=== PATIENT | female | born 1985 | race Caucasian/White ===

== ENCOUNTER → 2016-08-26 | Outpatient (CLI) | payer OTHER ==
[2016-08-26 12:29] LABS: BASO % 0.8 %; BASO ABS # 0.04 K/uL (0-0.2); COMPLETE YES; EOS % 2.8 %; HEMATOCRIT 39.8 % (37-47); IG% 0.2 %; LYMPH % 43.6 %; MEAN CELL VOLUME 93.4 fL (80-100); MEAN CORPUSCULAR HEMOGLOBIN 32.2 pg (25-34); MEAN CORPUSCULAR HGB CONC 34.4 g/dl (32-36); MEAN PLATELET VOLUME 9.3 fL (7.4-10.4); MONO % 6.8 %; NEUT % 45.8 %; PLATELET COUNT 289 K/uL (130-400); RED BLOOD COUNT 4.26 M/uL (4.2-5.4); WHITE BLOOD COUNT 5.27 K/uL (4.8-10.8)
[2016-08-26 15:01] LABS: LYME DISEASE AB IGG NEG (NEG); LYME DISEASE AB IGM NEG (NEG)
== END | disposition home or self-care (01) ==
LOC: C.LABBFT 09:52
PROVIDERS: ATTEND Internal Medicine
DX: Z00.00 Encounter for general adult medical examination without abnormal findings (principal); F41.9 Anxiety disorder, unspecified; R00.2 Palpitations; T14.8 Other injury of unspecified body region; W57.XXXA Bitten or stung by nonvenomous insect and other nonvenomous arthropods, initial encounter; M25.562 Pain in left knee

== ENCOUNTER → 2016-11-05 | Outpatient (CLI) | payer OTHER | END | disposition home or self-care (01) | LOC: C.PAPS 14:43 | PROVIDERS: ATTEND Obstetrics & Gynecology | DX: Z12.4 Encounter for screening for malignant neoplasm of cervix (principal) ==

== ENCOUNTER → 2017-11-12 | Outpatient (CLI) | payer OTHER ==
[2017-11-12 18:06] LABS: HEP C IGG 13 YRS+OLDER_RFLX NEG (NEG)
== END | disposition home or self-care (01) ==
LOC: C.LAB1850 15:15
PROVIDERS: ATTEND Obstetrics & Gynecology
DX: Z12.4 Encounter for screening for malignant neoplasm of cervix (principal); Z11.3 Encounter for screening for infections with a predominantly sexual mode of transmission

== ENCOUNTER → 2017-11-12 | Outpatient (CLI) | payer OTHER | END | disposition home or self-care (01) | LOC: C.PAPS 17:56 | PROVIDERS: ATTEND Obstetrics & Gynecology | DX: Z12.4 Encounter for screening for malignant neoplasm of cervix (principal); R87.610 Atypical squamous cells of undetermined significance on cytologic smear of cervix (ASC-US) ==

== ENCOUNTER 2025-07-10 01:18 | Observation (INO) ==
[2025-07-10] MEDS: SODIUM CHLORIDE 0.9% 1,000 ML IV STA (01:50)
[2025-07-10] MEDS: MoRPHine SULFATE 4 MG/ML 1 ML CARP\\VIAL IV PRN (01:50)
[2025-07-10] MEDS: ONDANSETRON INJ 2 MG/ML 2 ML VIAL IV STA (01:50)
[2025-07-10 02:08] LABS: Hematocrit (blood only) 35.4 % (37.0-47.0); Hemoglobin 12.6 g/dL (12.0-16.0); Immature Granulocytes # (auto) 0.02 K/uL (0.01-0.20); Immature Granulocytes % (auto) 0.3 %; Mean Corpuscular Hemoglobin 32.4 pg (25.0-34.0); Mean Corpuscular Volume 91.0 fL (80.0-100.0); Platelet Count 278 K/uL (130-400); RDW Standard Deviation 42.5 fL (36.4-46.3); Red Blood Count 3.89 M/uL (4.20-5.40); White Blood Count 7.97 K/ul (4.8-10.8)
[2025-07-10 02:15] LABS: Appearance Urine Clear (Clear); Bacteria Urine Automated None Seen (None Seen); Cast Urine Automated 0-2 /lpf (0-2); Epithelial Cell Urine Auto 0-2 /hpf (0-2); Glucose Urine UA Negative (Negative); WBC Urine Automated 0-5 /hpf (0-5)
[2025-07-10 02:21] LABS: Pregnancy Test, Serum Negative (Negative)
[2025-07-10 02:25] LABS: Alanine Aminotransferase 16.0 U/L (7-52); Albumin Globulin Ratio 1.9 (0.9-2); Albumin Level 4.3 gm/dl (3.4-5.0); Alkaline Phosphatase 35.0 U/L (34-104); Anion Gap 7.0 (3-11); Bilirubin,Total 0.4 mg/dl (0.2-1.0); Blood Urea Nitrogen 17.0 mg/dl (6-23); Calcium 8.8 mg/dl (8.6-10.3); Carbon Dioxide 22.0 mmol/L (21-32); Chloride 106.0 mmol/L (98-107); Creatinine Clr Calc Pharmacy 100.7 ml/min; Globulin 2.3 gm/dl (2.5-4.0); Glucose 103.0 mg/dl (70-99(Fasting)); Lipase 403.0 U/L (11-82); Potassium 3.7 mmol/L (3.5-5.1); Sodium 135.0 mmol/L (136-145); Total Protein 6.6 gm/dl (6.0-8.3)
--- NOTE | 2025-07-10 02:40 | Emergency Department Note ---
History of Present Illness General Chief complaint: Kidney Stone Stated complaint: KIDNEY STONE Time Seen by Provider: 07/10/25 01:24 History of Present Illness Maximum Pain Intensity: 8 This 40-year-old female presents ER complaining of abdominal pain for the past week steadily getting worse. Gallbladder has been surgically removed. Patient denies chest pain, dyspnea, fever, chills, flulike illness. Pain is mid abdomen. Home Medications Medication Instructions Recorded Confirmed Type lidocaine 5 % topical patch 1 patch topical DAILY PRN pain #15 03/08/25 06/01/25 Rx ea cetirizine 10 mg tablet (Zyrtec) 10 mg PO DAILY 05/25/25 07/10/25 History clotrimazole 10 mg sue 10 mg PO 5XD 14 days #70 tabs 05/26/25 06/01/25 Rx prednisone 5 mg tablet See Rx Instructions PO .COMPLEX 05/26/25 06/01/25 Rx #36 tabs fluconazole 150 mg tablet 150 mg PO ONCE 2 doses #2 tabs 06/06/25 Rx lorazepam 0.5 mg tablet 0.5 - 1 mg (1 - 2 x 0.5 mg) PO Q8H 07/09/25 07/10/25 Rx PRN anxiety #30 tabs fluoxetine 20 mg capsule (Prozac) 20 mg PO DAILY 07/10/25 07/10/25 History Allergies Allergy/AdvReac Type Severity Reaction Status Date / Time codeine Allergy Unknown SWELLING Verified 06/01/25 08:31 Past Med/Surg History Problem List (Updated 07/10/25 @ 04:56 by Trenton Gaitan PA-C) Pancreatitis Ovarian cyst (Acute) Abdominal pain, acute (Acute) Pelvic cramping Screening for STD (sexually transmitted disease) Nephrolithiasis (Chronic) Anxiety (Chronic) Right ovarian cyst Medical History ASCUS favor benign Surgical History Hx of lithotripsy Hx of tubal ligation S/P wisdom tooth extraction S/P cholecystectomy Family History Grandfather (Paternal) Dyslipidemia Denies family history of Ovarian cancer Prostate cancer Myocardial infarction Breast cancer Colorectal cancer Social History Smoking Status: Former smoker Tobacco Type: Cigarettes Age Started Using Tobacco: 15; Age Quit Using Tobacco: 35; packs per day: 1; Cigarettes Per Day: 1 pack day; Second Hand Exposure: No; Do You Dip or Chew Tobacco: No; Hx Alcohol Use: Yes Alcohol type: beer, wine and hard liquor Hx Substance Use: Yes Non-Prescribed Medications: Marijuana Non-Prescribed Medications Comment: does not have card Last Used Substance: Days (ago) Preferred Language: Malawian Communication Ability: Effective Visual Impairment: No Limitations Hearing Ability: Normal Pathology Transcriptionist Required: No Beliefs That Will Affect Care: None marital status: Single Current Living Situation: Family current occupational status: employed Feels Safe at Home: Yes Safety Concerns: Feels Safe At This Time Childhood Exposure to Second-Hand Smoke: No Diet: regular caffeine: Yes Dental Care, Regularly: No Physical Activity Frequency: 3-4 Times per Week Assistive Devices: None Review of Systems A total of 10 systems reviewed and were otherwise negative Physical Exam Vital Signs Vital Signs - 24 hr 07/10/25 01:20 07/10/25 01:55 07/10/25 04:03 Temperature 36.7 C Temperature Source Oral Pulse Rate 68 69 Pulse Rate [Apical] 89 Pulse Rhythm [Apical] Regular Pulse Strength [Apical] Normal Respiratory Rate 18 16 Respiratory Effort / Characteristics Non-Labored Spontaneous Non-Labored Spontaneous Respiratory Depth Normal Normal Respiratory Pattern Regular Blood Pressure 132/83 Blood Pressure [Right Arm] 124/74 Blood Pressure Mean 99 Blood Pressure Mean [Right Arm] 90 Blood Pressure Position [Right Arm] Lying Pulse Oximetry 100 97 Oxygen Delivery Method Room Air Room Air Sepsis Recent Fever Within 48 Hours No Sepsis New/Unexplained Change in Mental Status N/A Sepsis Action Taken by Nursing No Action Required VITALS: Vitals are noted on the nurse's note and reviewed by myself. Vital signs stable. GENERAL: Pleasant female, in no acute distress, nondiaphoretic, well-developed well-nourished. SKIN: Capillary reflex less than 2 seconds. HEENT: Normocephalic. PERRLA. EOMI. Nares patent. Mucous membranes moist. Neck is supple without nuchal rigidity. HEART: Regular rate and rhythm LUNGS: Clear to auscultation bilaterally without wheezes, rales or rhonchi. No retractions or accessory muscle use. ABDOMEN: Positive bowel sounds x 4. Normal tympanic percussion. Soft, tender to palpation mid abdomen, without masses or organomegaly. Miller sign negative. No guarding or rebound tenderness. no CVA tenderness MUSCULOSKELETAL: No gross musculoskeletal defects. NEURO: Patient was alert and oriented to person place and time. No focal neurological deficits. Course Administered Medications Cetirizine HCl (Cetirizine Hcl 10 Mg Tablet) 10 mg PO DAILY [facility] Stop: 08/09/25 08:59 Last Admin: 07/10/25 08:34 Dose: Not Given Documented By: victorino Fluoxetine HCl (Fluoxetine Hcl 20 Mg Cap) 20 mg PO DAILY PREMA Stop: 08/09/25 08:59 Last Admin: 07/10/25 08:34 Dose: Not Given Documented By: victorino Lactated Ringer's (Lr) 1,000 mls @ 125 mls/hr IV .Q8H PREMA Stop: 07/13/25 13:14 Last Admin: 07/10/25 14:38 Dose: 125 mls/hr Documented By: victorino Ketorolac Tromethamine (Ketorolac Tromethamine 15 Mg/Ml Vial) 15 mg IV Q6H PRN PRN Reason: Moderate Pain (Scale 4, 5, 6) Stop: 07/15/25 04:58 Last Admin: 07/10/25 05:43 Dose: 15 mg Documented By: BRIAN Morphine Sulfate (Morphine Sulfate 2 Mg/Ml Carp) 2 mg IV Q3H PRN PRN Reason: Severe Pain (Scale 7, 8, 9,10) Stop: 07/24/25 04:58 Last Admin: 07/10/25 21:22 Dose: 2 mg Documented By: Admin: 07/10/25 17:48 Dose: 2 mg Documented By: victorino Admin: 07/10/25 12:39 Dose: 2 mg Documented By: victorino Admin: 07/10/25 06:25 Dose: 2 mg Documented By: PAULINA Discontinued Medications Sodium Chloride (Nss) 1,000 mls @ 999 mls/hr IV .Q1H1M STA Stop: 07/10/25 02:33 Last Infusion: 07/10/25 03:08 Dose: Infused Documented By: Admin: 07/10/25 01:50 Dose: 999 mls/hr Documented By: BRIAN Famotidine (Pepcid 20mg Iv Push) 20 mg in 5 mls @ 2.5 mls/min IV NOW STA Stop: 07/10/25 04:44 Last Admin: 07/10/25 05:42 Dose: 2.5 mls/min Documented By: BRIAN Lactated Ringer's (Lr) 1,000 mls @ 125 mls/hr IV .Q8H PREMA Stop: 07/10/25 12:59 Last Infusion: 07/10/25 14:39 Dose: Infused Documented By: victorino Admin: 07/10/25 06:22 Dose: 125 mls/hr Documented By: PAULINA Ioversol (Optiray 320 100ml) 100 ml IV ONCE ONE Stop: 07/10/25 02:45 Last Admin: 07/10/25 02:45 Dose: 93 ml Documented By: NAWAF Morphine Sulfate (Morphine Sulfate 4 Mg/Ml 1 Ml Carp\Vial) 4 mg IV Q15M PRN PRN Reason: Pain Stop: 07/24/25 01:32 Last Admin: 07/10/25 01:50 Dose: 4 mg Documented By: BRIAN Ondansetron HCl (Ondansetron Inj 2 Mg/Ml 2 Ml Vial) 4 mg IV NOW STA Stop: 07/10/25 01:34 Last Admin: 07/10/25 01:50 Dose: 4 mg Documented By: BRIAN Medical Decision Making Medical Records Attestation: I reviewed the patient's medical records. Home Medications Current Medication List: was personally reviewed by me Laboratory Data Attestation: I reviewed the patient's lab results. 07/10/25 01:50 07/10/25 01:50 Lab Results 07/10/25 Range/Units 01:50 WBC 7.97 (4.8-10.8) K/ul RBC 3.89 L (4.20-5.40) M/uL Hgb 12.6 (12.0-16.0) g/dL Hct 35.4 L (37.0-47.0) % MCV 91.0 (80.0-100.0) fL MCH 32.4 (25.0-34.0) pg MCHC 35.6 (32.0-36.0) g/dL RDW Std Deviation 42.5 (36.4-46.3) fL RDW Coeff of Yuki 13.0 (11.5-14.5) % Plt Count 278 (130-400) K/uL MPV 8.5 L (9.4-12.4) fL Immature Gran % (Auto) 0.3 % Neut % (Auto) 41.8 % Lymph % (Auto) 47.9 % Curry % (Auto) 7.0 % Eos % (Auto) 2.5 % Baso % (Auto) 0.5 % Neut # (Auto) 3.33 (1.40-6.50) K/uL Lymph # (Auto) 3.82 H (1.20-3.40) K/uL Curry # (Auto) 0.56 (0.11-0.59) K/uL Eos # (Auto) 0.20 (0.00-0.50) K/uL Baso # (Auto) 0.04 (0.00-0.20) K/uL Immature Gran # (Auto) 0.02 (0.01-0.20) K/uL Sodium 135 L (136-145) mmol/L Potassium 3.7 (3.5-5.1) mmol/L Chloride 106 (98-107) mmol/L Carbon Dioxide 22 (21-32) mmol/L Anion Gap 7 (3-11) BUN 17 (6-23) mg/dl Creatinine 0.74 (0.6-1.2) mg/dl Est Cr Clr Drug Dosing 100.7 ml/min eGFR 104.83 BUN/Creatinine Ratio 23.0 H (10-20) Glucose 103 H (70-99(Fasting)) mg/dl Calcium 8.8 (8.6-10.3) mg/dl Total Bilirubin 0.4 (0.2-1.0) mg/dl AST 15 (13-39) U/L ALT 16 (7-52) U/L Alkaline Phosphatase 35 (34-104) U/L Total Protein 6.6 (6.0-8.3) gm/dl Albumin 4.3 (3.4-5.0) gm/dl Globulin 2.3 L (2.5-4.0) gm/dl Albumin/Globulin Ratio 1.9 (0.9-2) Lipase 403 H (11-82) U/L HCG, Qual Negative (Negative) Urine Color Yellow Urine Appearance Clear (Clear) Urine pH 6.5 (4.5-7.5) Ur Specific [place] 1.019 (1.000-1.030) Urine Protein Negative (Negative) Urine Glucose (UA) Negative (Negative) Urine Ketones Negative (Negative) Urine Blood Trace H (Negative) Urine Nitrite Negative (Negative) Urine Bilirubin Negative (Negative) Urine Urobilinogen Negative (Negative) Ur Leukocyte Esterase Negative (Negative) Urine WBC (Auto) 0-5 (0-5) /hpf Urine RBC (Auto) 3-5 H (0-2) /hpf U Hyaline Cast (Auto) 0-2 (0-2) /lpf U Epithel Cells (Auto) 0-2 (0-2) /hpf Urine Bacteria (Auto) None Seen (None Seen) Urine Comment Imaging Data Attestation: I personally reviewed and interpreted this imaging study as follows: Radiologist's Impression: Pelvis Ultrasound 07/10/25 04:09 EXAM: US pelvic complete CLINICAL HISTORY: ? cyst/torsion TECHNIQUE: Ultrasound examination of the pelvis was performed in real time and duplex using trans-abdominal and transvaginal approaches. The vascular flow was evaluated using color flow and with a spectral pattern of the flow waveform. COMPARISON: CT study done on the same day, 07/10/2025 01:49:00 [employer] and prior CT study dated 07/20/2023 reviewed. FINDINGS: Uterus: Uterus appears retroverted and enlarged in size, approximately measuring 9.1 x 4.5 x 6 cm. Endometrium appears average, measuring 12 mm. No mass was identified in the myometrium and endometrium slightly heterogeneous echotexture of the uterus seen. Ovaries: Right ovary is enlarged in size, approximately measuring 7.8 x 4.1 x 5.8 cm. A cyst approximately measuring 6.4 x 4.4 x 5.7 cm. 5 mm calcification. (Prior in 2022 measured 4.6 cm) The ovary shows normal vascularity, no evidence to suggest ovarian torsion Left ovary normal in size, approximately measures 2.9 x 1.9 cm x 2.3 cm. Normal vascularity seen. Bladder: Urinary bladder: .No evidence of bladder wall thickening, masses, or intraluminal stones. Additional Findings: Mild fluid identified in the posterior cul-de-sac. IMPRESSION: 1. No sonographic evidence of ovarian torsion. 2. Smooth unilocular simple right ovarian cyst with a focus of calcification showing an interval increase in size compared to the CT study dated109/20/2022. 3. Assigned ORADS US 2 category, 6-month follow-up ultrasound advised 4. The visualized left ovary is unremarkable. 5. Retroverted uterus. O-RADS Category 0 Incomplete evaluation. N/A .Complete the evaluation with additional imaging. 1 Normal findings, including simple cysts ( 3 cm premenopausal, 1 cm postmenopausal) 0% .Routine follow-up or no follow-up. 2Almost certainly benign (e.g., simple cysts ? 3 cm premenopausal, 1-3 cm postmenopausal) 1% .Routine follow-up or no follow-up. 3Low risk (e.g., unilocular cysts with a single thin septation) 1-10% .Consider follow-up imaging or surgical evaluation based on clinical scenario. 4 Intermediate risk (e.g., multilocular cysts, solid components with low color score) 10-50%. Surgical evaluation recommended. 5 High risk (e.g., irregular solid components with high color score) 50%. Surgical evaluation recommended, consider oncology referral. Electronically signed by Estevan Wolfe 07-10-2025 06:30 AM MDM Narrative Prior records/ancillary studies reviewed. Triage Nursing notes reviewed. Additional history obtained from nursing. The patient's history was concerning for abdominal pain. Differential diagnosis: Etiologies such as appendicitis, diverticulitis, PUD, biliary pathology, UTI, pancreatitis, obstruction, mesenteric ischemia, aortic pathology, infections, inflammatory bowel disease, renal colic, as well as others were entertained. Physical examination findings: As above. ER treatment provided: An order was placed for continuous cardiac monitoring. The monitor shows a rate of 60-100 with a sinus rhythm per my Independent interpretation. Zofran, morphine and IV fluids were ordered On reassessment the patient felt better. Diagnostics interpreted by me: The labs Independently Interpreted by myself revealed no worrisome leukocytosis, elevated lipase. Negative hCG Imaging studies: Imaging was reviewed and read by radiology Consultation: A consultation was placed with the hospitalist. The case was discussed and diagnostics were reviewed. The patient was evaluated in the ER for further treatment. Exam and history seem consistent with abdominal pain mostly related to early pancreatitis. Patient still had epigastric pain. Medicine was consulted and the case was discussed. She will be evaluated for admission. Patient is agreeable to treatment plan. Ultrasound was ordered for cyst seen on ovaries on CAT scan. No torsion. By the evaluation outlined above emergent etiologies such as appendicitis, diverticulitis, PUD, biliary pathology, UTI, obstruction, mesenteric ischemia, aortic pathology, inflammatory bowel disease, renal colic, as well as others were deemed relatively unlikely. The pt informed about the findings as listed above. All questions were answered and pleased with the treatment. The chart was completed utilizing [employer] voice recognition software. Grammatical errors, random word insertions, pronoun errors, and incomplete sentences are an occassional consequence of this system due to software limitations, ambient noise, and hardware issues. Any formal questions or concerns about the content, text, or information contained within the body of this dictation should be directly addressed to the physician recreation assistant for clarification. Impression & Plan Abdominal pain, acute, Ovarian cyst Discharge Plan Visit Data Chief Complaint: Kidney Stone Stated Complaint: KIDNEY STONE ED Provider: Merlin Ruiz ED Midlevel Provider: Sindi Gaitan Discharge Problem: Abdominal pain, acute, Ovarian cyst Patient Disposition: Admitted As Inpatient Condition: Good Discharge Instructions Interventions: ED Discharge Assessment Last Done: 07/10/25 05:58
[2025-07-10] MEDS: OPTIRAY 320 100ml IV ONE (02:45)
--- NOTE | 2025-07-10 03:30 | CT Scan Report ---
EXAM: CT abd pelvis IV con only CLINICAL HISTORY: mid abd pain TECHNIQUE: Contiguous axial images were obtained from the level of the diaphragm to the pubic symphysis with intravenous contrast. Coronal and sagittal reconstructions were likewise performed and indicated to increase the sensitivity for detecting clinically relevant pathology. If IV contrast material had not been administered, the likelihood of detecting abnormalities relevant to the patient's condition would have been substantially decreased. CT scan was performed according to ALARA (as low as reasonably achievable). COMPARISON: 11:48:31 RN TRANSPLANT. FINDINGS: The visualized lung bases are clear. The liver is normal in size and reduced attenuation. No focal liver lesions are seen. There is no intra or extrahepatic biliary ductal dilatation. Hepatic vasculature is patent. Status post-cholecystectomy. The spleen, pancreas, and adrenal glands are unremarkable. The kidneys are normal in size and attenuation. There is no hydronephrosis or perinephric fat stranding. About 6 mm sized calculus is noted involving left renal mid calyx. The ureters are normal in caliber and no ureteral calculi are seen. The bladder is normal in contour. Pelvic viscera are unremarkable. About 65 x 46 mm sized unilocular cyst is noted involving right adnexa - possibility of right ovarian cyst likely. No focal or diffuse bowel wall thickening or evidence of bowel obstruction is identified. No imaging evidence of appendicitis. Abdominal and pelvic vasculature is patent. No adenopathy or fluid collections are seen. No aggressive appearing osseous lesions are identified. IMPRESSION: About 6 mm sized calculus is noted involving left renal mid calyx.-stable. About 65 x 46 mm sized unilocular cyst is noted involving right adnexa - possibility of right ovarian cyst likely.- USG correlation is suggested.- increased size as compared to prior study. No other new interval abnormality since prior study. Electronically signed by Daquan Arroyo 07-10-2025 03:30 AM
--- NOTE | 2025-07-10 04:45 | History & Physical Report ---
Date of Service July 10, 2025 Assessment & Plan (1) Pancreatitis: (2) Ovarian cyst: Plan 40-year-old female PMHx anxiety, ovarian cyst, and nephrolithiasis presenting for abdominal pain x 2 weeks, worsening day of arrival. Findings consistent with lipase 403, in setting of abdominal pain, suggesting pancreatitis. #Pancreatitis Symptoms of abdominal pain started 2 weeks [employer], worsened on arrival moving to upper abdomen. Known kidney stones, follows with urology regularly. No prior history of pancreatitis. Not on ACEi or statin. S/p cholecystectomy. Recent "over-indulgence" of alcohol, pain started following this. Admission for acute pancreatitis, uncontrolled pain. - Lipase 403; LFTs stable; calcium 8.8; TG pending - CTAP 6 mm calculus L renal mid calyx stable, unilocular cyst right adnexa - NPO - IVF LR @ 125 mL/hr - Zofran prn N/V - Acetaminophen prn fever/pain, ketorolac prn moderate pain, morphine prn severe pain #Ovarian cyst, R Identified on CTAP, with 2 weeks abdominal pain. ? contributing to symptoms. - CBC stable - Preg negative - CTAP unilocular cyst R adnexa - US pending - Gyne f/u outpt #Psych- Fluoxetine, lorazepam prn - continue Dispo: Obs, med/sx VTE Prophylaxis: SCDs This document was dictated utilizing [employer]. Please excuse any grammatical errors that may be secondary to use of this software. Admission and Anticipated Discharge Date Admission Date: 07/10/2025 History of Present Illness Chief Complaint: Abd pain Primary Care Provider: Taurus Crews MD 40-year-old female PMHx anxiety, ovarian cyst, and nephrolithiasis presenting for abdominal pain x 2 weeks, worsening day of arrival. Initially the pain was in her RLQ, described as ligament-type pain from when she was . 2 days [employer] she had 1 episode of vomiting and diarrhea. The day [employer] the pain radiated to near where her GB was, which had been removed. It was the wrapping around and going straight through her back. She sates that the night [employer] she was laying in bed, could not get comfortable. It is a constant, "gallbladder-type" pain, 8/10 on the pain scale. No current N/V. No F/C. She occasionally drinks alcohol during the week (1/2 glass wine night [employer]) but the weekend [employer] she did "overindulge" in alcohol consumption, having a total of around 10 alcoholic beverages which is more than normal for her. No prior pancreatitis. No additional symptoms. Denies chest pain, SOB, palpitations, current N/V/C/D, numbness/tingling, fever/chills, URI symptoms, LUTS, weakness, syncope, or falls. Never had this happen before. With known kidney stone, follows with urology. ED evaluation reveals CBC without leukocytosis/leukopenia, stable H/H; CMP Na 135, ratio 23, glucose 103, globulin 2.3; lipase 403; UA negative for infection; CTAP 6mm calculus L kidney, unilocular cyst R adnexa.; Provided with 1L NSS, zofran 4mg IV, morphine 4mg IV in ED. Please see Dr. Wetzel's attestation for adjustments/additions to treatment plan. Allergies Allergy/AdvReac Type Severity Reaction Status Date / Time codeine Allergy Unknown SWELLING Verified 06/01/25 08:31 Home Medications Medication Instructions Recorded Confirmed Type ondansetron 4 mg disintegrating 4 mg PO Q8H PRN nausea and 10/11/23 06/01/25 Rx tablet vomiting #10 tabs lidocaine 5 % topical patch 1 patch topical DAILY PRN pain #15 03/08/25 06/01/25 Rx ea fluoxetine 20 mg capsule 20 mg PO DAILY #90 caps 04/10/25 06/01/25 Rx cetirizine 10 mg tablet (Zyrtec) 10 mg PO DAILY 05/25/25 06/01/25 History clotrimazole 10 mg sue 10 mg PO 5XD 14 days #70 tabs 05/26/25 06/01/25 Rx prednisone 5 mg tablet See Rx Instructions PO .COMPLEX 05/26/25 06/01/25 Rx #36 tabs oxycodone 5 mg tablet 5 mg PO Q6H PRN pain #10 tabs 06/01/25 06/01/25 Rx fluconazole 150 mg tablet 150 mg PO ONCE 2 doses #2 tabs 06/06/25 Rx lorazepam 0.5 mg tablet 0.5 - 1 mg (1 - 2 x 0.5 mg) PO Q8H 07/09/25 Rx PRN anxiety #30 tabs Past Med/Surg History Problem List (Updated 07/10/25 @ 04:56 by Trenton Gaitan PA-C) Pancreatitis Ovarian cyst (Acute) Abdominal pain, acute (Acute) Pelvic cramping Screening for STD (sexually transmitted disease) Nephrolithiasis (Chronic) Anxiety (Chronic) Right ovarian cyst Medical History ASCUS favor benign Surgical History Hx of lithotripsy Hx of tubal ligation S/P wisdom tooth extraction S/P cholecystectomy Family History Grandfather (Paternal) Dyslipidemia Denies family history of Ovarian cancer Prostate cancer Myocardial infarction Breast cancer Colorectal cancer Social History Smoking Status: Former smoker Tobacco Type: Cigarettes Age Started Using Tobacco: 15; Age Quit Using Tobacco: 35; packs per day: 1; Cigarettes Per Day: 2; Second Hand Exposure: No; Do You Dip or Chew Tobacco: No; Hx Alcohol Use: Yes Hx Substance Use: Yes Non-Prescribed Medications: Marijuana Non-Prescribed Medications Comment: does not have card Preferred Language: Faroese Visual Impairment: No Limitations Hearing Ability: Normal marital status: Single Current Living Situation: Significant Other current occupational status: employed Feels Safe at Home: Yes Childhood Exposure to Second-Hand Smoke: No Diet: regular caffeine: Yes Dental Care, Regularly: No Physical Activity Frequency: 3-4 Times per Week Review of Systems Review of Systems: All systems reviewed & are unremarkable except as noted in Subjective Physical Exam Physical Exam: General: No acute distress Skin: Warm and dry Head: Normocephalic, atraumatic Eyes: PERRL, conjunctivae clear, sclera non-icteric ENT: External ear and ear canal without swelling; nose atraumatic; good dentition, tongue normal appearance, pharynx normal Neck: Supple, no LAD Cardio: RRR, no M/G/R, S1 and S2 normal Resp: No respiratory distress, Lungs CTA in all lobes bilaterally, no wheezes, rales, or rhonchi Abdomen: Soft, symmetric, generalized tenderness to palpation throughout; No masses or hepatosplenomegaly; Bowel sounds normoactive MSK: No deformities; pulses palpable and equal; no edema. Neuro: Awake, alert; Sensation intact bilaterally; CN grossly intact Psych: Appropriate mood and affect; good judgement and insight. Results & Data Results & Data Vital Signs (Past 12 Hours) Vital Signs Temp Pulse Pulse Resp BP BP Pulse Ox 07/10/25 04:03 89 16 124/74 97 07/10/25 01:55 69 07/10/25 01:20 36.7 C 68 18 132/83 100 O2 Del Method 07/10/25 04:03 Room Air 07/10/25 01:55 07/10/25 01:20 Room Air Laboratory Results 07/10/25 01:50 WBC 7.97 RBC 3.89 L Hgb 12.6 Hct 35.4 L MCV 91.0 MCH 32.4 MCHC 35.6 RDW Std Deviation 42.5 RDW Coeff of Yuki 13.0 Plt Count 278 MPV 8.5 L Immature Gran % (Auto) 0.3 Neut % (Auto) 41.8 Lymph % (Auto) 47.9 Pleas[place] % (Auto) 7.0 Eos % (Auto) 2.5 Baso % (Auto) 0.5 Neut # (Auto) 3.33 Lymph # (Auto) 3.82 H [place]as[place] # (Auto) 0.56 Eos # (Auto) 0.20 Baso # (Auto) 0.04 Immature Gran # (Auto) 0.02 Sodium 135 L Potassium 3.7 Chloride 106 Carbon Dioxide 22 Anion Gap 7 BUN 17 Creatinine 0.74 Est Cr Clr Drug Dosing 100.7 eGFR 104.83 BUN/Creatinine Ratio 23.0 H Glucose 103 H Calcium 8.8 Total Bilirubin 0.4 AST 15 ALT 16 Alkaline Phosphatase 35 Total Protein 6.6 Albumin 4.3 Globulin 2.3 L Albumin/Globulin Ratio 1.9 Lipase 403 H HCG, Qual Negative Urine Color Yellow Urine Appearance Clear Urine pH 6.5 Ur Specific [place] 1.019 Urine Protein Negative Urine Glucose (UA) Negative Urine Ketones Negative Urine Blood Trace H Urine Nitrite Negative Urine Bilirubin Negative Urine Urobilinogen Negative Ur Leukocyte Esterase Negative Urine WBC (Auto) 0-5 Urine RBC (Auto) 3-5 H U Hyaline Cast (Auto) 0-2 U Epithel Cells (Auto) 0-2 Urine Bacteria (Auto) None Seen Urine Comment Diagnostic Findings Abdomen/Pelvis CT 07/10/25 01:33 EXAM: CT abd pelvis IV con only CLINICAL HISTORY: mid abd pain TECHNIQUE: Contiguous axial images were obtained from the level of the diaphragm to the pubic symphysis with intravenous contrast. Coronal and sagittal reconstructions were likewise performed and indicated to increase the sensitivity for detecting clinically relevant pathology. If IV contrast material had not been administered, the likelihood of detecting abnormalities relevant to the patient's condition would have been substantially decreased. CT scan was performed according to ALARA (as low as reasonably achievable). COMPARISON: 11:48:31 DESIGN DIRECTOR. FINDINGS: The visualized lung bases are clear. The liver is normal in size and reduced attenuation. No focal liver lesions are seen. There is no intra or extrahepatic biliary ductal dilatation. Hepatic vasculature is patent. Status post-cholecystectomy. The spleen, pancreas, and adrenal glands are unremarkable. The kidneys are normal in size and attenuation. There is no hydronephrosis or perinephric fat stranding. About 6 mm sized calculus is noted involving left renal mid calyx. The ureters are normal in caliber and no ureteral calculi are seen. The bladder is normal in contour. Pelvic viscera are unremarkable. About 65 x 46 mm sized unilocular cyst is noted involving right adnexa - possibility of right ovarian cyst likely. No focal or diffuse bowel wall thickening or evidence of bowel obstruction is identified. No imaging evidence of appendicitis. Abdominal and pelvic vasculature is patent. No adenopathy or fluid collections are seen. No aggressive appearing osseous lesions are identified. IMPRESSION: About 6 mm sized calculus is noted involving left renal mid calyx.-stable. About 65 x 46 mm sized unilocular cyst is noted involving right adnexa - possibility of right ovarian cyst likely.- USG correlation is suggested.- increased size as compared to prior study. No other new interval abnormality since prior study. Electronically signed by Daquan Arroyo 07-10-2025 03:30 AM Medications Administered 1L NSS Morphine 4mg IV Zofran 4mg IV Code Status & VTE Plan Code Status Full PG Care Time/CCT Total # of Minutes Spent Total Time Spent with Patient: Total time spent is greater than 50% in coordination of care (as documented) at patient's floor/unit and/or counseling patient: Coding Level of Care Code 52131 INT INP/OBS CARE 3/75MIN Diagnoses Pancreatitis K85.90 Ovarian cyst N83.209
[2025-07-10] MEDS: FAMOTIDINE 20MG IV PUSH 20 MG/5 ML SYR IV STA (05:42)
[2025-07-10] MEDS: KETOROLAC TROMETHAMINE 15 MG/ML VIAL IV PRN (05:43)
[2025-07-10] MEDS ORDERED: POLYETHYLENE (MIRALAX) 17 GM PACK PO PRN (06:16)
[2025-07-10] MEDS ORDERED: MELATONIN 3 MG TAB PO PRN (06:16)
[2025-07-10] MEDS ORDERED: LORazepam 0.5 MG TAB PO PRN (06:16)
[2025-07-10] MEDS: LACTATED RINGER'S 1,000 ML IV SCH ×2 (06:22→14:38)
[2025-07-10] MEDS: MoRPHine SULFATE 2 MG/ML CARP IV PRN (06:25)
--- NOTE | 2025-07-10 06:31 | Ultrasound Report ---
EXAM: US pelvic complete CLINICAL HISTORY: ? cyst/torsion TECHNIQUE: Ultrasound examination of the pelvis was performed in real time and duplex using trans-abdominal and transvaginal approaches. The vascular flow was evaluated using color flow and with a spectral pattern of the flow waveform. COMPARISON: CT study done on the same day, 07/10/2025 01:49:00 [employer]ANT and prior CT study dated 07/20/2023 reviewed. FINDINGS: Uterus: Uterus appears retroverted and enlarged in size, approximately measuring 9.1 x 4.5 x 6 cm. Endometrium appears average, measuring 12 mm. No mass was identified in the myometrium and endometrium slightly heterogeneous echotexture of the uterus seen. Ovaries: Right ovary is enlarged in size, approximately measuring 7.8 x 4.1 x 5.8 cm. A cyst approximately measuring 6.4 x 4.4 x 5.7 cm. 5 mm calcification. (Prior in 2022 measured 4.6 cm) The ovary shows normal vascularity, no evidence to suggest ovarian torsion Left ovary normal in size, approximately measures 2.9 x 1.9 cm x 2.3 cm. Normal vascularity seen. Bladder: Urinary bladder: .No evidence of bladder wall thickening, masses, or intraluminal stones. Additional Findings: Mild fluid identified in the posterior cul-de-sac. IMPRESSION: 1. No sonographic evidence of ovarian torsion. 2. Smooth unilocular simple right ovarian cyst with a focus of calcification showing an interval increase in size compared to the CT study dated109/20/2022. 3. Assigned ORADS US 2 category, 6-month follow-up ultrasound advised 4. The visualized left ovary is unremarkable. 5. Retroverted uterus. O-RADS Category 0 Incomplete evaluation. N/A .Complete the evaluation with additional imaging. 1 Normal findings, including simple cysts ( 3 cm premenopausal, 1 cm postmenopausal) 0% .Routine follow-up or no follow-up. 2Almost certainly benign (e.g., simple cysts ? 3 cm premenopausal, 1-3 cm postmenopausal) 1% .Routine follow-up or no follow-up. 3Low risk (e.g., unilocular cysts with a single thin septation) 1-10% .Consider follow-up imaging or surgical evaluation based on clinical scenario. 4 Intermediate risk (e.g., multilocular cysts, solid components with low color score) 10-50%. Surgical evaluation recommended. 5 High risk (e.g., irregular solid components with high color score) 50%. Surgical evaluation recommended, consider oncology referral. Electronically signed by Estevan Wolfe 07-10-2025 06:30 AM
[2025-07-10] MEDS: CETIRIZINE HCL 10 MG TABLET PO SCH (08:34)
--- NOTE | 2025-07-11 10:15 | Hospitalist Progress Note ---
Date of Service July 11, 2025 Assessment & Plan (1) Pancreatitis: Plan: 8; LFTs stable; calcium 8.8; TG pending - CTAP 6 mm calculus L renal mid calyx stable, unilocular cyst right adnexa - IVF LR @ 125 mL/hr - Zofran prn N/V - Acetaminophen prn fever/pain, ketorolac prn moderate pain, morphine prn severe pain - Lipase 403 down to 22 - con't IVF and advance diet to clears (2) Ovarian cyst: Plan 40-year-old female PMHx anxiety, ovarian cyst, and nephrolithiasis presenting for abdominal pain x 2 weeks, worsening day of arrival. Findings consistent with lipase 403, in setting of abdominal pain, suggesting pancreatitis. #Pancreatitis Symptoms of abdominal pain started 2 weeks [employer], worsened on arrival moving to upper abdomen. Known kidney stones, follows with urology regularly. No prior history of pancreatitis. Not on ACEi or statin. S/p cholecystectomy. Recent "over-indulgence" of alcohol, pain started following this. Admission for acute pancreatitis, uncontrolled pain. - Lipase 403; LFTs stable; calcium 8.8; TG pending - CTAP 6 mm calculus L renal mid calyx stable, unilocular cyst right adnexa - NPO - IVF LR @ 125 mL/hr - Zofran prn N/V - Acetaminophen prn fever/pain, ketorolac prn moderate pain, morphine prn severe pain #Psych- Fluoxetine, lorazepam prn - continue Dispo: Obs, med/sx VTE Prophylaxis: SCDs This document was dictated utilizing [employer]. Please excuse any grammatical errors that may be secondary to use of this software. Admission and Anticipated Discharge Date Admission Date: July 10, 2025 Subjective No events overnight. Pt states she still feels abdominal pain, No nausea or vomiting. Review of Systems Review of Systems: CONST: Negative for fever, body aches and chills. HENT: Negative for neck pain/stiffness, headache, congestion, sore throat, swelling. EYES: Negative for discharge/pain or vision changes. RESP: Negative for cough/hemoptysis and shortness of breath. CV: Negative chest pain, difficulty breathing, palpitations. ABD: + pain, nausea, vomiting. : Negative increase frequency, dysuria, blood in urine or stool. MUSC: Negative for muscle aches, edema. SKIN: Negative rash, lesions/sores. NEURO: Negative headache, dizziness, weakness. Physical Exam Physical Exam: GENERAL APPEARANCE NAD, activity normal for age, well developed/ well nourished, no cyanosis, pallor, or diaphoresis. EYES lids/conjunctiva normal. EARS/NOSE/THROAT Mucous membranes moist, nares normal, lips/teeth normal uvula midline without oral pharyngeal erythema, exudate or swelling TMs normal bilaterally. No lymphangitis/lymphedema. HEAD/NECK normocephalic atraumatic, no facial trauma, neck is supple. RESPIRATORY respiratory effort normal, speaks in full sentences, no tripod position, no accessory muscle use. Lungs clear to auscultation without rhonchi, wheezes, rales CARDIAC Regular rate and rhythm, no edema. ABDOMINAL Soft, ND/NT. No evidence of fluid wave. No pulsatile masses on exam, rebound tenderness, Miller sign or pain over Mcburney's point. MUSCLES/EXTREMITIES No abnormal range of motion, no swelling. SKIN Warm, pink and dry. No rashes, dermatoses, petechiae or lesions. NEUROLOGICAL Speech is clear and appropriate. Normal level of consciousness. Gait and coordination are normal. 5/5 strength in all extremities. PSYCH Normal mood and affect. Judgement/competence is appropriate Results & Data Results & Data Vital Signs (Past 12 Hours) Vital Signs Temp Pulse Resp BP Pulse Ox O2 Del Method 07/11/25 07:37 37.0 C 68 16 129/81 98 Room Air 07/10/25 23:47 37.0 C 60 18 117/74 97 Room Air PG Care Time/CCT Total # of Minutes Spent Total Time Spent with Patient: Total time spent is greater than 50% in coordination of care (as documented) at patient's floor/unit and/or counseling patient: Coding Level of Care Code 39398 SUB INP/OBS CARE 2/35MIN Diagnoses Pancreatitis K85.90 Ovarian cyst N83.209
[2025-07-11] MEDS: ACETAMINOPHEN 1,000 MG/100 ML VIAL IV PRN (10:37)
[2025-07-11] MEDS: ONDANSETRON INJ 2 MG/ML 2 ML VIAL IV PRN (20:15)
--- NOTE | 2025-07-12 10:20 | Hospitalist Progress Note ---
Date of Service July 12, 2025 Assessment & Plan (1) Pancreatitis: Plan: 8; LFTs stable; calcium 8.8; TG pending - CTAP 6 mm calculus L renal mid calyx stable, unilocular cyst right adnexa - IVF LR @ 125 mL/hr - Zofran prn N/V - Acetaminophen prn fever/pain, ketorolac prn moderate pain, morphine prn severe pain - Lipase 403 down to 222 - con't IVF and keep diet on clears (2) Ovarian cyst: Plan 40-year-old female PMHx anxiety, ovarian cyst, and nephrolithiasis presenting for abdominal pain x 2 weeks, worsening day of arrival. Findings consistent with lipase 403, in setting of abdominal pain, suggesting pancreatitis. #Pancreatitis Symptoms of abdominal pain started 2 weeks [employer], worsened on arrival moving to upper abdomen. Known kidney stones, follows with urology regularly. No prior history of pancreatitis. Not on ACEi or statin. S/p cholecystectomy. Recent "over-indulgence" of alcohol, pain started following this. Admission for acute pancreatitis, uncontrolled pain. - Lipase 403; LFTs stable; calcium 8.8; TG pending - CTAP 6 mm calculus L renal mid calyx stable, unilocular cyst right adnexa - NPO - IVF LR @ 125 mL/hr - Zofran prn N/V - Acetaminophen prn fever/pain, ketorolac prn moderate pain, morphine prn severe pain #Psych- Fluoxetine, lorazepam prn - continue Dispo: Obs, med/sx VTE Prophylaxis: SCDs Admission and Anticipated Discharge Date Admission Date: July 10, 2025 Subjective Pt state she still is feeling abdominal discomfort while attempting to tolerate clear liquid diet. Review of Systems Review of Systems: CONST: Negative for fever, body aches and chills. HENT: Negative for neck pain/stiffness, headache, congestion, sore throat, swelling. EYES: Negative for discharge/pain or vision changes. RESP: Negative for cough/hemoptysis and shortness of breath. CV: Negative chest pain, difficulty breathing, palpitations. ABD: Negative pain, nausea, vomiting. : Negative increase frequency, dysuria, blood in urine or stool. MUSC: Negative for muscle aches, edema. SKIN: Negative rash, lesions/sores. NEURO: Negative headache, dizziness, weakness. Physical Exam Physical Exam: GENERAL APPEARANCE NAD, activity normal for age, well developed/ well nourished, no cyanosis, pallor, or diaphoresis. EYES lids/conjunctiva normal. EARS/NOSE/THROAT Mucous membranes moist, nares normal, lips/teeth normal uvula midline without oral pharyngeal erythema, exudate or swelling TMs normal bilaterally. No lymphangitis/lymphedema. HEAD/NECK normocephalic atraumatic, no facial trauma, neck is supple. RESPIRATORY respiratory effort normal, speaks in full sentences, no tripod position, no accessory muscle use. Lungs clear to auscultation without rhonchi, wheezes, rales CARDIAC Regular rate and rhythm, no edema. ABDOMINAL Soft, ND/NT. No evidence of fluid wave. No pulsatile masses on exam, rebound tenderness, Miller sign or pain over Mcburney's point. MUSCLES/EXTREMITIES No abnormal range of motion, no swelling. SKIN Warm, pink and dry. No rashes, dermatoses, petechiae or lesions. NEUROLOGICAL Speech is clear and appropriate. Normal level of consciousness. Gait and coordination are normal. 5/5 strength in all extremities. PSYCH Normal mood and affect. Judgement/competence is appropriate Results & Data Results & Data Vital Signs (Past 12 Hours) Vital Signs Temp Pulse Resp BP BP Pulse Ox O2 Del Method 07/12/25 07:45 36.7 C 70 18 116/74 95 Room Air 07/12/25 00:22 36.7 C 56 L 18 117/65 97 Room Air PG Care Time/CCT Total # of Minutes Spent Total Time Spent with Patient: Total time spent is greater than 50% in coordination of care (as documented) at patient's floor/unit and/or counseling patient: Coding Level of Care Code 77026 SUB INP/OBS CARE 2/35MIN Diagnoses Pancreatitis K85.90 Ovarian cyst N83.209
[2025-07-12] MEDS: HYDROmorphone INJ 1 MG/ML SYRINGE IV PRN (16:23)
[2025-07-12 23:25] VITALS: O2SAT 98
[2025-07-13] MEDS: ACETAMINOPHEN 500 MG TAB PO PRN (06:13)
--- NOTE | 2025-07-13 10:22 | Hospitalist Progress Note ---
Date of Service July 13, 2025 Assessment & Plan (1) Pancreatitis: Plan: 8; LFTs stable; calcium 8.8; TG pending - CTAP 6 mm calculus L renal mid calyx stable, unilocular cyst right adnexa - IVF LR @ 125 mL/hr - Zofran prn N/V - Acetaminophen prn fever/pain, ketorolac prn moderate pain, morphine prn severe pain - Lipase 403 down to 222, then up again to 427 - con't IVF and will attempt to advance diet today - if unable to tolerate will have to continue clear liquids (2) Ovarian cyst: Plan 40-year-old female PMHx anxiety, ovarian cyst, and nephrolithiasis presenting for abdominal pain x 2 weeks, worsening day of arrival. Findings consistent with lipase 403, in setting of abdominal pain, suggesting pancreatitis. #Pancreatitis Symptoms of abdominal pain started 2 weeks [employer], worsened on arrival moving to upper abdomen. Known kidney stones, follows with urology regularly. No prior history of pancreatitis. Not on ACEi or statin. S/p cholecystectomy. Recent "over-indulgence" of alcohol, pain started following this. Admission for acute pancreatitis, uncontrolled pain. - Lipase 403; LFTs stable; calcium 8.8; TG pending - CTAP 6 mm calculus L renal mid calyx stable, unilocular cyst right adnexa - NPO - IVF LR @ 125 mL/hr - Zofran prn N/V - Acetaminophen prn fever/pain, ketorolac prn moderate pain, morphine prn severe pain #Psych- Fluoxetine, lorazepam prn - continue Dispo: Obs, med/sx VTE Prophylaxis: SCDs Admission and Anticipated Discharge Date Admission Date: July 10, 2025 Subjective Pt state she still is feeling abdominal discomfort while attempting to tolerate clear liquid diet. Review of Systems Review of Systems: CONST: Negative for fever, body aches and chills. HENT: Negative for neck pain/stiffness, headache, congestion, sore throat, swelling. EYES: Negative for discharge/pain or vision changes. RESP: Negative for cough/hemoptysis and shortness of breath. CV: Negative chest pain, difficulty breathing, palpitations. ABD: Negative pain, nausea, vomiting. : Negative increase frequency, dysuria, blood in urine or stool. MUSC: Negative for muscle aches, edema. SKIN: Negative rash, lesions/sores. NEURO: Negative headache, dizziness, weakness. Physical Exam Physical Exam: GENERAL APPEARANCE NAD, activity normal for age, well developed/ well nourished, no cyanosis, pallor, or diaphoresis. EYES lids/conjunctiva normal. EARS/NOSE/THROAT Mucous membranes moist, nares normal, lips/teeth normal uvula midline without oral pharyngeal erythema, exudate or swelling TMs normal bilaterally. No lymphangitis/lymphedema. HEAD/NECK normocephalic atraumatic, no facial trauma, neck is supple. RESPIRATORY respiratory effort normal, speaks in full sentences, no tripod position, no accessory muscle use. Lungs clear to auscultation without rhonchi, wheezes, rales CARDIAC Regular rate and rhythm, no edema. ABDOMINAL Soft, ND/NT. No evidence of fluid wave. No pulsatile masses on exam, rebound tenderness, Miller sign or pain over Mcburney's point. MUSCLES/EXTREMITIES No abnormal range of motion, no swelling. SKIN Warm, pink and dry. No rashes, dermatoses, petechiae or lesions. NEUROLOGICAL Speech is clear and appropriate. Normal level of consciousness. Gait and coordination are normal. 5/5 strength in all extremities. PSYCH Normal mood and affect. Judgement/competence is appropriate Results & Data Results & Data Vital Signs (Past 12 Hours) Vital Signs Temp Pulse Resp BP Pulse Ox O2 Del Method 07/13/25 07:06 36.9 C 57 L 20 118/74 98 Room Air 07/12/25 23:06 36.9 C 53 L 16 129/76 98 Room Air PG Care Time/CCT Total # of Minutes Spent Total Time Spent with Patient: Total time spent is greater than 50% in coordination of care (as documented) at patient's floor/unit and/or counseling patient: Coding Level of Care Code 41532 SUB INP/OBS CARE 2/35MIN Diagnoses Pancreatitis K85.90 Ovarian cyst N83.209
[2025-07-13 14:37] VITALS: BP 123/73; PULSE 55; RESP 19; TEMP 99
--- NOTE | 2025-07-13 16:51 | Discharge Summary ---
Discharge Summary Date of Service July 13, 2025 Principal Dx & Hospital Course #1 = Principal Diagnosis (1) Pancreatitis: 8; LFTs stable; calcium 8.8; TG pending - CTAP 6 mm calculus L renal mid calyx stable, unilocular cyst right adnexa - IVF LR @ 125 mL/hr - Zofran prn N/V - Acetaminophen prn fever/pain, ketorolac prn moderate pain, morphine prn severe pain - Lipase 403 down to 222, then up again to 427 - con't IVF and will attempt to advance diet today - Pt able to tolerate low fat diet (2) Ovarian cyst: Plan 40-year-old female PMHx anxiety, ovarian cyst, and nephrolithiasis presenting for abdominal pain x 2 weeks, worsening day of arrival. Findings consistent with lipase 403, in setting of abdominal pain, suggesting pancreatitis. #Pancreatitis Symptoms of abdominal pain started 2 weeks [employer], worsened on arrival moving to upper abdomen. Known kidney stones, follows with urology regularly. No prior history of pancreatitis. Not on ACEi or statin. S/p cholecystectomy. Recent "over-indulgence" of alcohol, pain started following this. Admission for acute pancreatitis, uncontrolled pain. - Lipase 403; LFTs stable; calcium 8.8; TG pending - CTAP 6 mm calculus L renal mid calyx stable, unilocular cyst right adnexa - NPO - IVF LR @ 125 mL/hr - Zofran prn N/V - Acetaminophen prn fever/pain, ketorolac prn moderate pain, morphine prn severe pain #Psych- Fluoxetine, lorazepam prn - continue Dispo: Obs, med/sx VTE Prophylaxis: SCDs Admission HPI Per Admitting Provider 40-year-old female PMHx anxiety, ovarian cyst, and nephrolithiasis presenting for abdominal pain x 2 weeks, worsening day of arrival. Initially the pain was in her RLQ, described as ligament-type pain from when she was . 2 days [employer] C[employer]OGR[employer] she had 1 episode of vomiting and diarrhea. The day [employer] C[employer] the pain radiated to near where her GB was, which had been removed. It was the wrapping around and going straight through her back. She sates that the night [employer] C[employer] she was laying in bed, could not get comfortable. It is a constant, "gallbladder-type" pain, 8/10 on the pain scale. No current N/V. No F/C. She occasionally drinks alcohol during the week (1/2 glass wine night [employer] C[employer]) but the weekend [employer] she did "overindulge" in alcohol consumption, having a total of around 10 alcoholic beverages which is more than normal for her. No prior pancreatitis. No additional symptoms. Denies chest pain, SOB, palpitations, current N/V/C/D, numbness/tingling, fever/chills, URI symptoms, LUTS, weakness, syncope, or falls. Never had this happen before. With known kidney stone, follows with urology. ED evaluation reveals CBC without leukocytosis/leukopenia, stable H/H; CMP Na 135, ratio 23, glucose 103, globulin 2.3; lipase 403; UA negative for infection; CTAP 6mm calculus L kidney, unilocular cyst R adnexa.; Provided with 1L NSS, zofran 4mg IV, morphine 4mg IV in ED. Please see Dr. Wetzel's attestation for adjustments/additions to treatment plan. Discharge Exam GENERAL APPEARANCE NAD, activity normal for age, well developed/ well nourished, no cyanosis, pallor, or diaphoresis. EYES lids/conjunctiva normal. EARS/NOSE/THROAT Mucous membranes moist, nares normal, lips/teeth normal uvula midline without oral pharyngeal erythema, exudate or swelling TMs normal bilaterally. No lymphangitis/lymphedema. HEAD/NECK normocephalic atraumatic, no facial trauma, neck is supple. RESPIRATORY respiratory effort normal, speaks in full sentences, no tripod position, no accessory muscle use. Lungs clear to auscultation without rhonchi, wheezes, rales CARDIAC Regular rate and rhythm, no edema. ABDOMINAL Soft, ND/NT. No evidence of fluid wave. No pulsatile masses on exam, rebound tenderness, Miller sign or pain over Mcburney's point. MUSCLES/EXTREMITIES No abnormal range of motion, no swelling. SKIN Warm, pink and dry. No rashes, dermatoses, petechiae or lesions. NEUROLOGICAL Speech is clear and appropriate. Normal level of consciousness. Gait and coordination are normal. 5/5 strength in all extremities. PSYCH Normal mood and affect. Judgement/competence is appropriate Discharge Plan Discharge Items Patient Disposition: Home - Self-Care Reason For Visit: PANCREATITIS Discharge Diagnosis: pancreatitis Condition on Discharge: Good Activity: Resume your previous activity Non-emergency contact: Primary Care Provider Call non-emergency contact if: you have any medication questions Follow-up/Referrals: Taurus Crews MD [Primary Care Provider] - Diet: Regular Addtl Attending Provider Instructions: Follow up with PMD in 1 week Pending Studies at Discharge: No Stand-Alone Forms: My [facility] [place], Smoking Cessation Medications and DC Order Prescriptions: New acetaminophen [Tylenol Extra Strength] 500 mg Tablet 1,000 mg PO Q8H PRN (Reason: pain) Qty: 60 0RF Continued lorazepam 0.5 mg tablet 0.5 - 1 mg PO Q8H PRN (Reason: anxiety) Qty: 30 0RF cetirizine [Zyrtec] 10 mg tablet 10 mg PO DAILY lidocaine 5 % adhesive patch,medicated 1 patch TOP DAILY PRN (Reason: pain) Qty: 15 0RF Rx Instructions: leave on most painful area for 12 hrs clotrimazole 10 mg sue 10 mg PO 5XD 14 Days Qty: 70 1RF prednisone 5 mg tablet See Rx Instructions PO .COMPLEX Qty: 36 0RF Rx Instructions: prednisone 5 mg: take 8 tablets (40 mg) on Day 1; 7 tablets (35 mg) on Day 2; then decrease by 1 tablet every day until finished fluoxetine [Prozac] 20 mg capsule 20 mg PO DAILY Discontinued fluconazole 150 mg tablet 150 mg PO ONCE 0 Days Qty: 2 0RF Rx Instructions: may repeat second dose 72 hrs after first dose if symptoms persist Discharge Orders: Discharge Order (Routine); Ordered 07/13/25 Ordered By: Doni Patrick/Other Patient Handouts: Low-Fat Cooking Tips Admission Data Admit Date/Time: 07/13/25 10:19 Attending Provider: Doni Kumar Admit Provider: [place] Wetzel Primary Care Provider: Taurus Crews Other Providers: [place] Wetzel Hospital Stay Data Consultations 07/10/25 04:09 ED Decision to Admit Stat Diagnostic Imagining Performed 07/10/25 01:33 CT abd pelvis IV con only Stat 07/10/25 04:09 US pelvic complete Stat US transvaginal Stat Pending Results Patient Have Any Pending Studies at Discharge: No Discharge Instructions Given to Patient (Per Discharging Provider) Follow up with PMD in 1 week Total Time Total Time Spent Total Time Spent (In Minutes): 50 Coding Level of Care Code 55944 INP/OBS DISCH >30 MIN Diagnoses Pancreatitis K85.90 Ovarian cyst N83.209
== END 2025-07-13 17:35 | disposition home or self-care (01) | DRG 440 ==
LOC: 3W 01:18 → ED 01:18 → SUATTDRO 04:59 → 3W 05:58